=== PATIENT | male | born 1940 | race Caucasian/White ===

== ENCOUNTER → 2016-11-18 | Outpatient (CLI) | payer OTHER, BC | LOC: LAB 10:01 | PROVIDERS: ATTEND Urology | DX: R97.20 Elevated prostate specific antigen [PSA] (principal) | CPT/HCPCS: 36415; 84153 ==

== ENCOUNTER → 2017-02-10 | Outpatient (CLI) | payer OTHER, BC ==
[2017-02-10 11:17] LABS: HEMOGLOBIN A1C 6.45 % (4.2-6.0)
== END ==
LOC: MOB LAB 09:44
DX: E11.9 Type 2 diabetes mellitus without complications (principal); N40.0 Benign prostatic hyperplasia without lower urinary tract symptoms; R97.20 Elevated prostate specific antigen [PSA]
CPT/HCPCS: 36415; 83036; 84153